=== PATIENT | female | born 1995 | race Two or more races ===

== ENCOUNTER 2017-03-31 15:55 | Emergency (ER) | payer OTHER ==
[2017-03-31 16:00] VITALS: BP 140/87; PULSE 81; RESP 16; TEMP 98.6; O2SAT 98
--- NOTE | 2017-03-31 16:35 | EDPHY ---
H & P Time Seen by Provider: 03/31/17 16:33 HPI/ROS: Chief complaint. Right eye irritation HPI. 21-year-old female presents emergency department with right eye irritation for 1 day. She has discomfort with blinking. She has no URI symptoms. No injury. No purulent drainage though increased tearing this today. Her vision is okay. She does not wear contacts. She had right upper eyelid surgery as a child due to asymmetry. No similar symptoms previously. ROS Constitutional. no fever/chills, no weakness Eyes. No problem with vision but irritation to the right eye ENT. no sore throat, no nasal drainage Cardiovascular. no chest pain Respiratory. no shortness of breath, no cough Abdominal. no abdominal pain, no nausea/vomiting, no diarrhea . no problems urinating MS. no calf pain/swelling, no neck/back pain, no joint pain Skin. no rash Lymph. no swollen glands Neuro. no headache, no dizziness, no difficulty walking or with speech Past Medical/Surgical History: Eyelid surgery is child otherwise healthy Social History: Single, nonsmoker, no alcohol Smoking Status: Never smoked Physical Exam: General Appearance: Alert pleasant well-developed female mild distress vital signs are stable Eyes: Pupils equal and round no pallor or injection. No obvious injection or drainage. No evidence for foreign body. ENT, Mouth: Mucous membranes are moist. Respiratory: There are no retractions, lungs are clear to auscultation. Cardiovascular: Regular rate and rhythm. Gastrointestinal: Abdomen is soft and nontender, no masses, bowel sounds normal. Neurological: Awake and alert, sensory and motor exams grossly normal. Skin: Warm and dry, no rashes. Musculoskeletal: Neck is supple nontender. Extremities symmetrical, full range of motion. Psychiatric: Patient is oriented X 3, there is no agitation. Constitutional: Initial Vital Signs Temperature (C) 37 C 03/31/17 15:58 Heart Rate 81 03/31/17 15:58 Respiratory Rate 16 03/31/17 15:58 Blood Pressure 140/87 H 03/31/17 15:58 O2 Sat (%) 98 03/31/17 15:58 O2 Delivery Mode Room Air Allergies/Adverse Reactions: No Known Allergies Allergy (Verified 03/31/17 15:57) Home Medications: Medication Instructions Recorded Doxycycline Calcium 03/31/17 Gentamicin 0.3% [Gentak 0.3% Opht 2 drops RTEYE QID #1 opht.btl 03/31/17 Drops] Medical Decision Making Procedures: Visual acuity shows right eye 20/30 and left eye 20/25 Alcaine and fluorescein are instilled in the right eye. The eye is examined under slit lamp. There is no evidence for anterior chamber hyphema or cloudiness. No foreign body. No corneal abrasion or scratch. There is mild erythema to the conjunctiva. The patient is return to the chair and thefluorescein is irrigated from the eye. Patient tolerates the procedure well. ED Course/Re-evaluation: The patient and I discussed slit-lamp findings. We discussed treatment plan including criteria for return importance of follow-up and further evaluation. She expresses understanding and agreement Differential Diagnosis: I considered corneal abrasion, corneal ulcer, conjunctivitis, foreign body Departure - Departure Disposition: Home, Routine, Self-Care Clinical Impression: Acute conjunctivitis of right eye Qualifiers: Acute conjunctivitis type: unspecified Qualified Code(s): H10.31 - Unspecified acute conjunctivitis, right eye Condition: Good Instructions: Conjunctivitis (ED) Additional Instructions: Antibiotic eyedrops using 2 drops 4 times daily for 3 days. Return for worsening symptoms. Re-evaluation by Ophthalmology if not improved in the next 2-3 days Referrals: Po Sánchez MD [Medical Doctor] - 2-3 days, if not improved Prescriptions: Gentamicin 0.3% [Gentak 0.3% Opht Drops] 2 drops RTEYE QID #1 opht.btl
[2017-03-31] MEDS ORDERED: PROPARACAINE 0.5% 15 ML OPHT DROP OP ONE (16:40)
[2017-03-31] MEDS ORDERED: FLUORESCEIN SODIUM 1 MG STRIP OP ONE (16:45)
== END 2017-03-31 17:18 | disposition home or self-care (01) ==
DX: H10.31 Unspecified acute conjunctivitis, right eye (principal)